=== PATIENT | male | born 1955 | race Caucasian/White ===

== ENCOUNTER → 2025-01-05 | Outpatient (CLI) | payer MEDICARE, MEDICAID, SELFPAY ==
--- NOTE | 2025-01-05 15:05 | CT_ITS ---
EXAM: CT soft tissue neck with contrast CLINICAL HISTORY: Florence syndrome COMPARISON: None TECHNIQUE: CT soft tissue neck with IV contrast. Sagittal and coronal reconstructions were completed. 75 cc IV Isovue 370 was administered. FINDINGS: Lymph nodes: No cervical lymphadenopathy by size, number or morphologic criteria. Small nonspecific lymph nodes are scattered throughout the neck. Aerodigestive tract: The oral cavity is partially obscured by artifact from dental amalgam. The nasal cavities, naso-oropharynx, pharyngeal mucosal space, laryngeal structures and infraglottic trachea are within normal limits. Major salivary glands: Within normal limits. Thyroid gland: Within normal limits. Carotid space: Patent bilateral extracranial carotid and jugular systems. Intracranial contents: Imaged portions within normal limits. Paranasal sinuses, middle ears, mastoids: Clear. Orbits: Within normal limits. Bones: No suspicious osseous lesions in the imaged calvarium, skull base and spine. Mild degenerative changes of the cervicothoracic spine. Normal cervicothoracic alignment. Temporomandibular joints are maintained. Lungs: Emphysema within the imaged lung apices.. CT/Soft Tissue Neck WITH Contrast IMPRESSION: No suspicious neck mass or adenopathy. Reading Location: [facility]
--- NOTE | 2025-01-05 15:05 | CT_ITS ---
PROCEDURE: BRAIN/HEAD W/WO CONTRAST 01/05/2025 REASON FOR EXAM: DISORDER OF THE AUTONOMIC NERVOUS SYSTEM, UNSPECIFIED. 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 TECHNIQUE: Multiplanar precontrast and postcontrast CT images of the brain submitted for interpretation. COMPARISON: None. FINDINGS: There is no evidence of cerebral hemorrhage or cerebral edema. Relative preservation of whole-brain mass for age is noted. Ventricular system and cisterns are normal. There is no evidence of midline shift. Thalamus and hypothalamus are normal. Visualized portions of the brainstem are unremarkable. No abnormal enhancement is seen in the brain or leptomeninges. There is no evidence of intra or extra-axial fluid collection. Sinuses appear clear. No suspicious calvarial lesion is identified. CT/Brain/Head W/WO Contrast IMPRESSION: Negative plain and contrasted CT scan of the head. Recommend MRI of the brain without and with contrast for more definitive evaluation if clinical presentation is listed were to persist. Reading Location: [place] [id number]
--- NOTE | 2025-01-05 15:05 | CT_ITS ---
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 TECHNIQUE: Chest CT without contrast. Coronal and Sagittal reconstruction series were provided. One or more dose reduction techniques were used (e.g., Automated exposure control, adjustment of the mA and/or kV according to patient size, use of iterative reconstruction technique RADIATION DOSE SUMMARY: CTDlvol: 60 mGy DLP: 2600 mGycm COMPARISON: None. FINDINGS: Hardware: None. Lymph nodes: No axillary, mediastinal or hilar lymphadenopathy. Heart and Vasculature: The heart is normal in size without pericardial effusion. The great vessels are normal in caliber. Minimal calcific plaque of the thoracic aorta. Lungs and Airways: Central airways are patent. Emphysema with scattered areas of scarring. No suspicious pulmonary mass, pleural effusion or pneumothorax. Upper Abdomen: Unremarkable. Bones: Degenerative changes of the thoracic spine. CT/Chest WITH Contrast IMPRESSION: 1. No thoracic or pulmonary mass. 2. Moderate emphysema and scattered areas of scarring. Reading Location: [id number]
== END | disposition home or self-care (01) ==
PROVIDERS: Referring Provider Ophthalmology; Visit Provider Ophthalmology
DX: G90.2 Horner's syndrome (principal); Z87.891 Personal history of nicotine dependence
CPT/HCPCS: 70470; 70491; 71260; Q9967